=== PATIENT | female | born 1985 | race Caucasian/White ===

== ENCOUNTER → 2019-02-04 12:56 | Outpatient (CLI) | payer OTHER, MEDICAID, SELFPAY ==
[2019-02-04 13:47] LABS: Cholesterol 202 mg/dL (140-199); HDL Cholesterol 39 mg/dL (40-60); LDL Cholesterol Calculated 140 mg/dL (<100); Triglycerides 117 mg/dL (35-150)
[2019-02-04 15:58] LABS: Vitamin D 25 Hydroxy (D3) 48.4 ng/mL (30.0-100.0)
== END ==
PROVIDERS: PCP Student in an Organized Health Care Education/Training Program; Visit Provider Student in an Organized Health Care Education/Training Program
DX: Z13.220 Encounter for screening for lipoid disorders (principal); E55.9 Vitamin D deficiency, unspecified
CPT/HCPCS: 36415; 80061; 82306

== ENCOUNTER → 2022-07-14 12:15 | Outpatient (CLI) | payer OTHER, MEDICAID, SELFPAY ==
[2022-07-14 14:27] LABS: Add Manual Diff / Slide Review NO; Basophils Absolute Auto 0 /uL (0-100); Basophils Percent Auto 0.6 % (0-2); Eosinophils Absolute Auto 0 /uL (0-450); Eosinophils Percent Auto 0.5 % (2-4); Hematocrit 42.2 % (36-46); Hemoglobin 14.7 g/dL (12.0-16.0); Lymphocytes Absolute Auto 1600 /uL (1100-4500); Lymphocytes Percent Auto 26.5 % (25-40); Mean Corpuscular HGB Conc 34.8 % (30-36); Mean Corpuscular Hemoglobin 30.4 PG (26-34); Mean Corpuscular Volume 87.4 fL (80-100); Monocytes Absolute Auto 400 /uL (0-900); Monocytes Percent Auto 5.9 % (3-14); Neutrophils Absolute Auto 4000 /uL (1500-7000); Neutrophils Percent Auto 66.5 % (50-75); Platelet Count 306 X10^3/uL (150-400); Red Blood Cell Count 4.83 X10^6/uL (4.0-5.2); Red Cell Distribution Width 12.7 % (11.6-14.8)
[2022-07-14 15:37] LABS: TSH w/ Reflex to FT4 0.22 uIU/mL (0.47-4.68)
[2022-07-14 17:26] LABS: Alanine Aminotransferase 24 IU/L (<35); Albumin 4.4 g/dL (3.5-5.0); Albumin Globulin Ratio 1.4 (1.0-2.8); Alkaline Phosphatase 75 U/L (38-126); Aspartate Aminotransferase 26 IU/L (14-36); Bilirubin Total 0.5 mg/dL (0.2-1.3); Blood Urea Nitrogen 14 mg/dL (7-17); Calcium 9.4 mg/dL (8.4-10.2); Carbon Dioxide 25 mmol/L (22-32); Chloride 104 mmol/L (98-107); Estimated Glomerular Filt Rate > 60 mL/min (>60); Globulin 3.1 g/dL (1.7-4.1); Glucose 77 mg/dL (70-100); HEMOLYSIS < 15 (0-50); Potassium 4.1 mmol/L (3.4-5.1); Sodium 138 mmol/L (137-145); Total Protein 7.5 g/dL (6.3-8.2)
[2022-07-14 18:20] LABS: Vitamin B12 819 pg/mL (239-931)
[2022-07-14 21:46] LABS: Free T4, Direct Thyroxine 0.99 ng/dL (0.78-2.19)
== END ==
PROVIDERS: PCP Student in an Organized Health Care Education/Training Program; Referring Provider Student in an Organized Health Care Education/Training Program; Visit Provider Student in an Organized Health Care Education/Training Program
DX: R53.83 Other fatigue (principal); R63.5 Abnormal weight gain; T50.905A Adverse effect of unspecified drugs, medicaments and biological substances, initial encounter; Z02.5 Encounter for examination for participation in sport
CPT/HCPCS: 36415; 80053; 82607; 84439; 84443; 85025

== ENCOUNTER 2022-11-25 08:36 | Day surgery (SDC) | payer OTHER, MEDICAID, SELFPAY ==
[2022-11-21 16:23] VITALS: BMI 30.9
[2022-11-25 09:02] VITALS: BMI 30.9
[2022-11-25] MEDS: LACTATED RINGERS 1,000 ML 100 ML IV (09:19)
--- NOTE | 2022-11-25 09:22 | PM.PREOP ---
Pre-operative Note COVID-19 COVID-19 status: Not tested Criteria for continued procedure: Deterioration of the patient's condition or overall health Interval Note History & Physical reviewed/Exam performed by Physician: Yes Changes to H&P: Yes H&P completed within 30 days and has changed as indicated here:: patient declined tubal removal
[2022-11-25 10:18] VITALS: BP 111/70; PULSE 69; RESP 12; TEMP 36.3; O2SAT 98
--- NOTE | 2022-11-25 10:21 | SUR.OPER ---
Lithotomy on padded OR bed, head on pillow, arms secured on padded arm boards at <90 degrees abduction. Legs secured in padded yellow fins stirrups.
--- NOTE | 2022-11-25 10:21 | SUR.OPER ---
patients glasses brought with patient to OR, placed in black glass case and brought with patient to PACU.
[2022-11-25 10:23] VITALS: BP 99/57; PULSE 68; RESP 12; O2SAT 96
[2022-11-25 10:29] VITALS: BP 106/76; PULSE 69; RESP 12; O2SAT 97
--- NOTE | 2022-11-25 10:30 | P.OP_ITS ---
Operative Date/Time/Diagnoses Date of procedure: 11/25/22 Time of procedure: 10:30 Pre-op diagnosis: Removal and replacement of Mirena IUD Post-op diagnosis: same Procedure & Clinicians Procedure: Removal and replacement of Mirena IUD Same procedure as scheduled: Yes Indications: Patient with mild developmental delay who is currently using a Mirena IUD for control and control of menses who is requesting removal and replacement due to expiration of her current Mirena IUD. Surgeon: Elsa Monk Click Yes if Unassisted: Yes Anesthesia Type: General Operative Notes Findings: Normal external genitalia, vagina, cervix. Normal exam under anesthesia with uterus not enlarged, no adnexal masses. Uterus sounded to 8 cm Closure Type: not applicable Specimen(s): none sent Applied: other (Mirena IUD) Estimated Blood Loss (mL): 0 Blood products transfused: none Procedure in detail: Patient was brought to the operating room where she underwent a general anesthesia. She was placed in low [facility] stirrups. A check system was reviewed with staff in the room. Warming was with blankets. No antibiotics indicated. Vaginal prep was not indicated so no sterile draping was indicated. A speculum was placed in the vagina. The IUD strings were grasped with ring forceps and the IUD removed without difficulty. A single-tooth tenaculum was placed on the anterior lip of the cervix and the uterus was sounded to 8 cm. T he new Mirena IUD was placed to the fundus and the insertion device removed. The strings were cut to approximately 4 cm. Single-tooth tenaculum removed and speculum removed. Patient went to recovery room in stable condition. Complications: none Post-operative Condition: stable Disposition: same day surgery Plan for aftercare: Home when awake and stable
[2022-11-25 10:35] VITALS: BP 110/70; PULSE 71; RESP 13; TEMP 36.2; O2SAT 97
== END 2022-11-25 10:30 | disposition home or self-care (01) ==
PROVIDERS: PCP Pediatrics; Referring Provider Specialist; Visit Provider Specialist
PROC: (CPT 58301; principal; 2022-11-25 09:45)
DX: Z30.433 Encounter for removal and reinsertion of intrauterine contraceptive device (principal); R62.50 Unspecified lack of expected normal physiological development in childhood
CPT/HCPCS: 58301; 58300; 81025; J1885; J2405; J2704; J3010; J7298

== ENCOUNTER → 2024-01-01 09:17 | Outpatient (CLI) | payer OTHER, MEDICAID, SELFPAY ==
[2024-01-01 10:21] LABS: Add Manual Diff / Slide Review NO; Basophils Absolute Auto 100 /uL (0-100); Eosinophils Absolute Auto 100 /uL (0-450); Eosinophils Percent Auto 0.8 % (2-4); Hematocrit 42.7 % (36-46); Hemoglobin 14.4 g/dL (12.0-16.0); Lymphocytes Absolute Auto 1500 /uL (1100-4500); Lymphocytes Percent Auto 19.7 % (25-40); Mean Corpuscular HGB Conc 33.6 % (30-36); Mean Corpuscular Hemoglobin 29.8 PG (26-34); Mean Corpuscular Volume 88.7 fL (80-100); Monocytes Absolute Auto 500 /uL (0-900); Monocytes Percent Auto 6.1 % (3-14); Neutrophils Absolute Auto 5500 /uL (1500-7000); Neutrophils Percent Auto 72.4 % (50-75); Platelet Count 335 X10^3/uL (150-400); Red Blood Cell Count 4.81 X10^6/uL (4.0-5.2); Red Cell Distribution Width 13.4 % (11.6-14.8); White Blood Cell Count 7.6 X10^3/uL (4.5-11.0)
[2024-01-01 10:29] LABS: Hemoglobin A1C% w Est Avg Glu 5.4 % (4.0-6.0)
[2024-01-01 10:47] LABS: Alanine Aminotransferase 24 IU/L (<35); Albumin 4.4 g/dL (3.5-5.0); Albumin Globulin Ratio 1.6 (1.0-2.8); Alkaline Phosphatase 77 U/L (38-126); Aspartate Aminotransferase 27 IU/L (14-36); BUN Creatinine Ratio 31.4 (6-22); Bilirubin Total 0.5 mg/dL (0.2-1.3); Blood Urea Nitrogen 16 mg/dL (7-17); Calcium 9.5 mg/dL (8.4-10.2); Carbon Dioxide 25 mmol/L (22-32); Chloride 106 mmol/L (98-107); Cholesterol 191 mg/dL (140-199); Estimated Glomerular Filt Rate > 60 mL/min (>60); Globulin 2.8 g/dL (1.7-4.1); Glucose 92 mg/dL (70-100); HDL Cholesterol 48 mg/dL (40-60); HEMOLYSIS 42 (0-50); LDL Cholesterol Calculated 121 mg/dL (<100); Potassium 4.6 mmol/L (3.4-5.1); Sodium 136 mmol/L (137-145); Total Protein 7.2 g/dL (6.3-8.2); Triglycerides 111 mg/dL (35-150)
[2024-01-01 11:14] LABS: TSH w/ Reflex to FT4 1.46 uIU/mL (0.47-4.68)
== END ==
LOC: LAB 09:18
PROVIDERS: PCP Student in an Organized Health Care Education/Training Program; Referring Provider Student in an Organized Health Care Education/Training Program; Visit Provider Student in an Organized Health Care Education/Training Program
DX: Z13.1 Encounter for screening for diabetes mellitus (principal); Z13.29 Encounter for screening for other suspected endocrine disorder; E78.00 Pure hypercholesterolemia, unspecified; F32.1 Major depressive disorder, single episode, moderate; Z79.899 Other long term (current) drug therapy
CPT/HCPCS: 36415; 80053; 80061; 83036; 84443; 85025